=== PATIENT | female | born 1940 | race Caucasian/White ===

== ENCOUNTER 2016-12-29 18:36 | Inpatient (IN) | payer MEDICARE ==
--- NOTE | ~2016-12-29 | HP ---
Unit #: [id number] #: [id number] Patient: LORRIE ROWE [id number] [address] [place], [place] [address] [id number] MR#: [id number] NAME: LORRIE ROWE ROOM: Age: 76 Sex: F Admission Date: 12/29/2016 : 1940 Attending Physician: Malu Mao M.D. Referring Physician: Diego Toth D.O. Primary Care Physician: Diego Toth D.O. HISTORY AND PHYSICAL CHIEF COMPLAINT Intractable back pain after a fall with a T7 compression fracture. HISTORY OF PRESENT ILLNESS This pleasant 76-year-old female with AODM, hypertension, chronic pain, history of arrhythmia, is admitted for intractable back pain. The patient uses a walker, fell with the walker last evening. Family was able to get the patient up off the floor after about half an hour. She has been experiencing severe mid back pain since last evening. She now is unable to sit up or stand secondary to severe back pain. She presented to this emergency department earlier today where after multiple x-rays were performed, it was determined that she has an acute versus subacute T7 compression fracture with 30% loss of height. Currently, on examination, she is unable to even sit up secondary to pain. She is most tender over the mid thoracic spine. PAST MEDICAL HISTORY 1. AODM. 2. Hypertension. 3. 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 4. History of elevated LFTs. 5. Chronic back pain status post multiple back surgeries and kyphoplasty on chronic opiates. 6. Hyperlipidemia. 7. History of acute kidney injury in the past. 8. Admission August 2015 for torsades related to electrolyte abnormalities, RUSS ejection fraction 55%, moderate TR, [id number]-jmfemdyf MR. Negative Lexiscan Cardiolite. Patient also developed junctional rhythm at that time and paroxysmal atrial fibrillation and needed a temporary pacemaker. 9. Cholecystectomy. 10. Multiple back surgeries. 11. Bilateral total knee replacements. 12. Bilateral rotator cuff repair. ALLERGIES 1. Phenergan. 2. Dilaudid. 3. Nonsteroidal anti-inflammatory drugs. 4. Penicillin. 5. Felodipine. 6. Rocephin. Unit #: [id number] #: [id number] Patient: LORRIE ROWE HOME MEDICATIONS From the best I can determine include: 1. Celexa 10 mg daily. 2. Metformin 500 mg b.i.d. 3. Januvia 50 mg daily. 4. Norvasc 10 mg daily. 5. Lipitor 10 mg h.s. 6. Oxycodone 15 mg q.6 h. as needed. SOCIAL HISTORY The patient lives with her who just had shoulder surgery. She is a lifelong nonsmoker and does not drink alcohol. FAMILY HISTORY Negative for CAD. REVIEW OF SYSTEMS Notable for fall, ITP, hypertension, diabetes, hyperlipidemia, arrhythmia, above-mentioned surgeries. All other systems were reviewed and are negative except for severe pain. PHYSICAL EXAMINATION VITAL SIGNS: Temperature 98.7, pulse 75, respirations 14, blood pressure 144/75, O2 saturation 100% on room air. GENERAL: Pleasant, 76-year-old female currently in no acute distress unless she is moved. HEENT: Eyes PERRLA. Extraocular muscles are intact status post bilateral cataract extraction. Pharynx is benign. NECK: Supple without adenopathy or thyromegaly. CHEST: Clear. HEART: Normal S1, S2 with a soft systolic murmur best heard at the left lower sternal border. ABDOMEN: Bowel sounds are present. No hepatosplenomegaly, tenderness or masses. EXTREMITIES: With mild pedal edema. Pedal pulses are present but diminished. NEUROLOGIC: Awake and alert. Cranial nerves are intact. Equal strength throughout but is extremely weak on exam. Resists sitting up secondary to severe mid thoracic back pain. With percussion of her spine, she is most tender over the mid thoracic spine. Straight leg raising is negative. This causes pain in her lower back. DIAGNOSTIC STUDIES LABORATORY: None are yet drawn. IMAGING: Chest x-ray no acute disease. CT scan of the L-spine limited due to hardware. Postop changes. L1-L2 indeterminate fracture. Kyphoplasty is noted along with postop changes related to previous back surgeries. Head CT shows general atrophy and no acute disease. CT scan of the thoracic spine, T7 fracture acute versus subacute with 30% loss of height. Plain x-rays of the C-spine show multilevel DJD. Unit #: [id number] #: [id number] Patient: LORRIE ROWE ASSESSMENT 1. Fall with intractable mid thoracic back pain. 30% T7 compression fracture is noted. Patient is status post extensive back surgery and kyphoplasty. She now is immobilized secondary to severe pain. 2. Chronic pain on chronic opiates. 3. Adult-onset diabetes mellitus. 4. Remote history of ITP. 5. Essential hypertension. 6. Hyperlipidemia. 7. History of torsades, paroxysmal atrial fibrillation and junctional rhythm in 2014, in large part related to electrolyte abnormalities. 8. Previous history of acute kidney injury. PLAN 1. Pain control. 2. DVT prophylaxis. 3. Obtain baseline labs, EKG and urinalysis. 4. Social work and physical therapy to [facility]. 5. If not improving, consider spine surgery consult to determine whether a kyphoplasty would be of benefit, etc. Dictated by Melanie Viveros M.D. VÍCTOR/ivelisse TD: 12/29/2016 22:43 JOB #: [id number] HISTORY AND PHYSICAL Page 1 of 1 X Melanie Viveros MD X HISTORY AND PHYSICAL
--- NOTE | ~2016-12-29 | CT122 ---
[facility] A Service of [facility] & [facility] RADIOLOGY TEXT RESULTS PATIENT: LORRIE ROWE LOCATION: [facility] 236-01 : 41 UNIT #: [id number] AGE: [address]: Malcolm Del Angel MD SEX: F ORDER DR: [id number] [facility] [address] [place], [place] [address] [id number] I MR#: [id number] Acc #: [id number] NAME: LORRIE ROWE. : 1940 SEX: F STUDY DATE/TIME: 12/29/2016 15:44 UNIT: CEDOF ROOM: 43[address] STUDY DESCRIPTION: CT Thoracic Spine Wo Cont Attending Physician: Melanie Viveros M.D. Referring Physician: Diego Toth D.O. Ordering Physician: Malu Mao M.D. Primary Care Physician: Diego Toth D.O. MEDICAL IMAGING REPORT This report is preliminary unless electronic signature is present EXAM Thoracic spine series, 12/29/2016 HISTORY Fall yesterday. Unsure of loss of consciousness. Upper and lower back and hit back of head. Pain back of head. FINDINGS CT thoracic spine performed. Bone soft tissue windows reviewed. No prior dedicated no prior dedicated CT of the thoracic spine. Comparison to thoracic spine plain radiographs of 05/29/[address] of the chest 10/08/2015. Visualized thyroid unremarkable. No mediastinal or hilar adenopathy suggested. Heart oxujms-ys-rutiz limits of normal in size. No pleural effusions. Linear scarring or atelectasis in the periphery of the lungs. Some linear patchy densities in the lower lung zones probably represent combination of chronic change and atelectasis. Atherosclerotic arterial calcifications. Visualized portions of the liver unremarkable. Status post cholecystectomy. Visualized spleen, pancreas, adrenal glands, upper renal poles unremarkable. Large hiatal hernia. More pronounced than on prior chest CT. Remainder of visualized esophagus, stomach, small bowel and colon unremarkable. Diminished bony mineralization. Alignment in the frontal projection shows indication of mild dextroscoliosis of the upper lumbar spine. In the lateral projection there is some straightening of the mid to inferior thoracic lordosis. Similar to prior examination. Prior T12 and L1 vertebral plasty. Acute appearing mild central compression deformity T7 vertebral body. Loss of height centrally approximately 31%. This is new compared to the prior plain radiograph of 05/29/[address] examination 10/08/2015. Given the patient's history, it is likely related to the recent fall. The compression deformity involves the superior endplate. There are some faintly evident fracture planes in the cortex of the superior endplate. The no significant retropulsion of posterior STS. [facility] A Service of [facility] RADIOLOGY TEXT RESULTS PATIENT: LORRIE ROWE LOCATION: [facility] 236-01 : 41 UNIT #: [id number] AGE: [address]: Malcolm Del Angel MD SEX: F ORDER DR: nicolas. No displaced fragments. The other thoracic vertebral body heights appear within normal limits. Moderate generalized intervertebral disc space narrowing. Vacuum disc phenomena 11/26/1889 10, T10-T11, T11-T12, V12-L1. No significant paraspinal hematoma adjacent to T7. No other fractures are seen. Degenerative changes in the cervical spine. Posterior disc osteophyte complex C4-C5 narrowing of the anterior thecal space. Mild central spinal canal narrowing. Possible anterior cord contact. There is no indication of cord compression. Within the thoracic spine. There is a left paracentral osteophyte T7-T8 narrowing left paracentral thecal space. Small posterior osteophytes T11-T12 without spinal stenosis. The neural foramina appear patent without evidence of exiting nerve impingement. IMPRESSION 1. Please see the complete dictation above. There is an acute or early subacute T7 superior endplate compression deformity more pronounced centrally with approximately 31% loss of height centrally. New in comparison to plain radiographs from May 2016. No significantly displaced fracture fragments. No retropulsion of posterior cortex at T7. No spinal canal compromise. No paraspinal hematoma. There is no underlying bony destructive process seen. I favor that this is a compression fracture related to the patient's acute trauma in conjunction with underlying bony demineralization. No other acute fractures are seen. 2. Prior T12 and L1 vertebral plasty. 3. Multilevel degenerative changes in the visualized spine. See blzgc-tr-tbpzs description in body of report above. 4. Large hiatal hernia. More pronounced than on prior CT chest 10/08/2015. Remainder of visualized alimentary canal unremarkable. 5. Atherosclerotic arterial calcifications. No aneurysm. 6. Prior cholecystectomy. This may be a incidental findings in body of report above. Dictated by... Robert York M.D. THIS IS AN ELECTRONICALLY VERIFIED REPORT Robert York M.D. at 12/31/2016 8:06 PM ALYSHA/yesenia TD: 12/30/2016 01:59 JOB #: [id number] MEDICAL IMAGING REPORT Page 1 of 1 COPY
--- NOTE | ~2016-12-29 | OR ---
Unit #: [id number] #: [id number] Patient: LORRIE ROWE [id number] [address] [place], [place] [address] [id number] I MR#: [id number] NAME: LORRIE ROWE ROOM: 241 Date of Procedure: 01/02/2017 Admission Date: 12/29/2016 Surgeon: Robert Suárez M.D. : 1940 Attending Physician: Malcolm Del Angel M.D. Referring Physician: Diego Toth D.O. Primary Care Physician: Diego Toth D.O. OPERATIVE REPORT PREOPERATIVE DIAGNOSES 1. Osteoporosis. 2. T7 osteoporotic compression fracture. POSTOPERATIVE DIAGNOSES 1. Osteoporosis. 2. T7 osteoporotic compression fracture. PROCEDURE PERFORMED T7 kyphoplasty and biopsy ([id number]). ANESTHESIOLOGIST Dr. Angulo. ANESTHESIA General endotracheal. ESTIMATED BLOOD LOSS Minimal. SPECIMENS T7 to pathology. COMPLICATIONS None. INDICATIONS The patient is a 76-year-old female who suffered a fall several weeks ago, suffered an acute fracture of T7. The patient has undergone kyphoplasty in the past at T12 and L1. She was made aware of the risks and the difficulty of predicting a specific outcome. DESCRIPTION OF PROCEDURE The patient was taken to surgery. After successful anesthesia, she was placed prone on well-padded Ruddy table on 2 bolsters. The back was prepped and draped in usual sterile fashion. The T7 pedicles were well localized under biplanar fluoroscopy. Two stab incisions were made at T7 where upon the working cannulas were advanced within the vertebral body of T7. Biopsy specimen was obtained from each side and sent them to pathology labeled T7. Next, a 10 mm Express balloons were placed. These were inflated and had good position within the vertebral body. These were deflated and removed and the methacrylate was slowly injected under live Unit #: [id number] #: [id number] Patient: LORRIE ROWE lateral fluoroscopic imaging. It was allowed to cure and harden and had good position within the vertebral body of T7. The working cannulas were removed. The skin was closed with Dermabond. Two final images demonstrating the final position of the methacrylate within the vertebral body of T7 were saved for permanent copy. The skin was closed with Dermabond. Telfa and Tegaderm comprised the final dressing. The patient tolerated the procedure well, was turned supine, extubated, and taken stable to recovery. All sponge, needle, and instrument counts were correct x3. Dictated by... Khadra Barclay/atul TD: 01/03/2017 17:06 JOB #: [id number] OPERATIVE REPORT Page 1 of 1 X Robert Suárez MD X PROCEDURE OPERATIVE NOTE
--- NOTE | ~2016-12-29 | DS ---
Unit #: [id number] #: [id number] Patient: LORRIE ROWE [id number] [address] [place], [place] [address] [id number] I MR#: [id number] NAME: LORRIE ROWE ROOM: 241 Age: 76 Sex: F Admission Date: 12/29/2016 : 1940 Discharge Date: 01/03/2017 Attending Physician: Malcolm Del Angel M.D. Referring Physician: Diego Toth D.O. Primary Care Physician: Diego Toth D.O. DISCHARGE SUMMARY REASON FOR ADMISSION Acute onset of back pain; T7 compression fracture. HISTORY OF PRESENT ILLNESS/HOSPITAL COURSE The patient is a very pleasant 76-year-old female with history of diabetes type 2, hypertension and chronic pain syndrome who was admitted secondary to intractable back pain. She was determined to have a T7 compression fracture with 30% loss of height. Consultation was placed to Dr. Suárez of spine service. The patient underwent kyphoplasty procedure yesterday on 01/02/2017. Postoperatively she, otherwise, did well. PT and OT services have evaluated the patient secondary to falls, as well as intractable pain. She is deemed necessary and appropriate for transfer to a rehab facility. Through her hospital course laboratory studies were assessed. Blood sugar was noted to be elevated. She will be initiated on Lantus 10 units subcu q.a.m. As well, she will be maintained on NovoLog low-dose sliding scale with insulin and Accu-Cheks q.a.c./q.h.s. Please note the patient did have a urine culture secondary to abnormal UA on day of admission, which did not yield any acute bacterial growth. Also of note, CT of the thoracic spine was performed, which did reveal aforementioned T7 compression fracture. Laboratory studies at time of discharge include a CBC showing hemoglobin of 9.7, creatinine level of 1.5, likely representing the patient's baseline. FINAL DISCHARGE DIAGNOSES 1. Thoracic 7 compression fracture. 2. Acute onset of intractable back pain. 3. Diabetes type 2. 4. Chronic kidney disease, baseline creatinine likely close to 1.5. 5. Idiopathic thrombocytopenic purpura. 6. Prior history of transaminitis. Workup negative apparently in the past. 7. History of chronic back pain with numerous back surgeries. 8. Hyperlipidemia. 9. Bilateral total knee replacements in the past. DISCHARGE MEDICATIONS 1. Celexa 10 mg p.o. daily. Unit #: [id number] #: [id number] Patient: LORRIE ROWE 2. Januvia 50 mg p.o. daily. 3. Norvasc 10 mg p.o. daily. 4. Lipitor 10 mg p.o. q.h.s. 5. NovoLog low-dose sliding scale with insulin and Accu-Cheks q.a.c./q.h.s. 6. Oxycodone/OxyIR 15 mg p.o. q.6 p.r.n. 7. Lantus 10 units subcu q.a.m. DISCHARGE CONDITION Stable. DISCHARGE DISPOSITION To rehab for ongoing care. Dictated by... Khadra Cabello/judith TD: 01/03/2017 15:50 JOB #: [id number] DISCHARGE SUMMARY Page 1 of 1 X Malcolm Del Angel MD X DISCHARGE SUMMARY
--- NOTE | ~2016-12-29 | CT98 ---
[facility] A Service of [facility] & [facility] RADIOLOGY TEXT RESULTS PATIENT: LORRIE ROWE LOCATION: [facility] 236-01 : 41 UNIT #: [id number] AGE: [address]: Malcolm Del Angel MD SEX: F ORDER DR: [id number] [facility] [address] [place], [place] [address] [id number] I MR#: [id number] Acc #: [id number] NAME: LORRIE ROWE. : 1940 SEX: F STUDY DATE/TIME: 12/29/2016 17:10 UNIT: CEDOF ROOM: [id number] STUDY DESCRIPTION: CT Lumbar Spine Wo Cont Attending Physician: Melanie Viveros M.D. Referring Physician: Diego Toth D.O. Ordering Physician: Malu Mao M.D. Primary Care Physician: Diego Toth D.O. MEDICAL IMAGING REPORT This report is preliminary unless electronic signature is present EXAM CT lumbar spine HISTORY Fell yesterday, unsure loss of consciousness. Has upper and lower back pain. Hit back of head. Pain at the back of the head. Multiple previous surgeries, spinal fusion, kyphoplasties. No cancer history indicated. TECHNIQUE This CT exam was performed with one or more of the following radiation dose reduction techniques: automatic exposure control, adjustment of mA and/or kV according to patient size, and iterative reconstruction. COMMENT CT of the lumbar spine attempted in the axial plane followed by sagittal and coronal reconstructed images. There is comparison study from 12/24/2012. This examination is severely technically limited due to a combination of problems including a large amount of metal present but also apparently suboptimal scan or penetration. The images are noisy in general and considerably noisier than they were in 2013 even though the metal was present at that time also. The study is essentially nondiagnostic with respect to possible fracture or the status of bony fusion and it should be repeated on a different CT system with better penetration and better metal reduction technique. Since this patient is in the emergency room, limited interpretation as follows provided. The patient has posterior fusion hardware from apparently L2-S1 and there have been kyphoplasties at L1 and T12 and in the S1 region. The S1 kyphoplasty cement is old but the kyphoplasty cement at T12 and L1 is new from 2013. There is anterior wedge deformity with broad Schmorl's node STS. [facility] A Service of [facility] RADIOLOGY TEXT RESULTS PATIENT: LORRIE ROWE LOCATION: A 236-01 : 41 UNIT #: [id number] AGE: [address]: Malcolm Del Angel MD SEX: F ORDER DR: formation either side of the 1-2 intervertebral disc, essentially new from prior. Progression of vacuum disc formation at T11-12 and T12-L1 since prior. Deformity of L3 is poorly characterized, possibly chronic and there are intervertebral disc spacers at 2-3, 3-4, 4-5 levels. I believe there is chronic fusion across the 5-1 level. There is probably some chronic anterolisthesis of L3 on L4 and retrolisthesis of L2 on L3. There is lower lumbar levoconvex upper lumbar dextroconvex scoliosis. Partly appreciated is posterior bone graft material but again I cannot accurately assess for possible fusion. Right side L2 pedicle screw crosses medial aspect of the pedicle probably at the lateral aspect of the canal. The left side L3 pedicle screw crosses lateral to the lateral margin of the pedicle terminates at the lateral aspect of the vertebral body cortex. Left-sided S1 pedicle screw passes beyond the anterior cortex sacrum by about 5.0 mm. Minimal extension of the right-sided S1 screw beyond the anterior cortex. There is no gross bony canal stenosis. There is multilevel facet arthritis appreciated at levels where not obscured by the metal artifact. Arthritis noted in the sacroiliac joints. IMPRESSION 1. This study is so technically limited it is essentially nondiagnostic for evaluation for acute versus chronic fracture. I would recommend that it be repeated on a different CT scanner with better capability. The imaging acquired is very grainy and limited by the metal artifact. Acquisition on a newer scanner with better metal reduction technique is recommended. 2. There is evidence of fusion L2-S1. There is no gross bony canal stenosis. There has been interval kyphoplasties at T12 and L1 since a study from 2012. There is new deformity centered at either side of the 1-2 intervertebral disc with anterior wedging of L2 but this is age indeterminate. Please see the detailed discussion above and again if there is concern for acute fracture I would recommend that the study be performed again with dedicated metal reduction technique. STAT * RESULT Dictated by... Heidy Charles M.D. THIS IS AN ELECTRONICALLY VERIFIED REPORT Heidy Charles M.D. at 12/30/2016 10:07 AM Latesha TD: 12/29/2016 18:24 JOB #: [id number] MEDICAL IMAGING REPORT [facility]. [facility] A Service of [facility] & [facility] RADIOLOGY TEXT RESULTS PATIENT: LORRIE ROWE LOCATION: [place] [address] : 41 UNIT #: [id number] AGE: [address]: Malcolm Del Angel MD SEX: F ORDER DR: Page 1 of 1 COPY
--- NOTE | ~2016-12-29 | US77 ---
[facility] A Service of [facility] RADIOLOGY TEXT RESULTS PATIENT: LORRIE ROWE LOCATION: [facility] : 41 UNIT #: [id number] AGE: [address]: Malcolm Del Angel MD SEX: F ORDER DR: [id number] [facility] [address] [place], [place] [address] [id number] I MR#: [id number] Acc #: [id number] NAME: LORRIE ROWE. : 1940 SEX: F STUDY DATE/TIME: 12/31/2016 12:42 UNIT: [facility] ROOM: [facility] STUDY DESCRIPTION: US Kidney Bilateral Complete Attending Physician: Malcolm Del Angel M.D. Referring Physician: Diego Toth D.O. Ordering Physician: Physician Non-Staff Primary Care Physician: Deigo Toth D.O. MEDICAL IMAGING REPORT This report is preliminary unless electronic signature is present EXAM Renal ultrasound INDICATION Acute kidney injury. BUN 27, creatinine 1.6, GFR 31.2. PROCEDURE Sanford-scale and Doppler imaging of the kidneys and bladder. COMPARISON 10/26/2016 FINDINGS Right kidney measures 8.9 cm. Cortical thickness 8.0 mm. The left kidney is significantly obscured by bowel gas artifact. No obvious hydronephrosis. Unremarkable bladder. IMPRESSION 1. Left kidney obscured and not well seen. 2. No obvious hydronephrosis. 3. Mild cortical thinning of the right kidney may represent changes of chronic renal disease. Dictated by... Bhavik Landeros M.D. THIS IS AN ELECTRONICALLY VERIFIED REPORT Bhavik Landeros M.D. at 12/31/2016 5:05 PM SHANNON/vidya TD: 12/31/2016 14:18 JOB #: [id number] [facility] A Service [facility] RADIOLOGY TEXT RESULTS PATIENT: LORRIE ROWE LOCATION: [facility] : 41 UNIT #: [id number] AGE: [address]: Malcolm Del Angel MD SEX: F ORDER DR: MEDICAL IMAGING REPORT Page 1 of 1 COPY
--- NOTE | ~2016-12-29 | CT71 ---
[facility] A Service of [facility] & [facility] RADIOLOGY TEXT RESULTS PATIENT: LORRIE ROWE LOCATION: [facility] 236-01 : 41 UNIT #: [id number] AGE: [address]: Malcolm Del Angel MD SEX: F ORDER DR: [id number] [facility] [address] [place], [place] [address] [id number] I MR#: [id number] Acc #: [id number] NAME: LORRIE ROWE : 1940 SEX: F STUDY DATE/TIME: 12/29/2016 16:59 UNIT: CEDOF ROOM: [id number] STUDY DESCRIPTION: CT Head Wo Contrast Attending Physician: Melanie Viveros M.D. Referring Physician: Diego Toth D.O. Ordering Physician: Malu Mao M.D. Primary Care Physician: Diego Toth D.O. MEDICAL IMAGING REPORT This report is preliminary unless electronic signature is present EXAM CT brain without contrast media HISTORY Fell yesterday. Back pain, hit back of head and pain in back of head. TECHNIQUE/COMPARISON Transaxial imaging of the brain was performed without contrast media and compared to the patient's previous scan of October 2016. This CT exam was performed with one or more of the following radiation dose reduction techniques: automatic exposure control, adjustment of mA and/or kV according to patient size, and iterative reconstruction. FINDINGS There is generalized prominence of the ventricles and CSF-containing spaces unchanged from the patient's last study. No intra or extraaxial mass lesions, fluid collections or mass effect are seen. No focal areas of low attenuation or evidence of acute intracranial hemorrhage. There is evidence of chronic sinus disease in the right maxillary sinus. No fractures are present. There is atherosclerotic calcification within the carotid siphons and vertebral arteries. CONCLUSION Generalized atrophy. No acute intracranial findings. Chronic right maxillary sinus disease. Dictated by... Robert Pierce M.D. THIS IS AN ELECTRONICALLY VERIFIED REPORT Robert Pierce M.D. at 12/30/2016 10:35 AM JFK/to STS. [facility] A Service of [facility] & [facility] RADIOLOGY TEXT RESULTS PATIENT: LORRIE ROWE LOCATION: [place] [address] : [birth year] UNIT #: [id number] AGE: [address]: Malcolm Del Angel MD SEX: F ORDER DR: TD: 12/29/2016 23:11 JOB #: [id number] MEDICAL IMAGING REPORT Page 1 of 1 COPY
--- NOTE | ~2016-12-29 | CR58 ---
[facility] A Service of [facility] & [facility] RADIOLOGY TEXT RESULTS PATIENT: LORRIE ROWE LOCATION: [facility] 236-01 : 41 UNIT #: [id number] AGE: [address]: Malcolm Del Angel MD SEX: F ORDER DR: [id number] [facility] [address] [place], [place] [address] [id number] I MR#: [id number] Acc #: [id number] NAME: LORRIE ROWE : 1940 SEX: F STUDY DATE/TIME: 12/29/2016 17:48 UNIT: CEDOF ROOM: [id number] STUDY DESCRIPTION: CR Cervical Spine 2 or 3 Views Attending Physician: Melanie Viveros M.D. Referring Physician: Diego Toth D.O. Ordering Physician: Malu Mao M.D. Primary Care Physician: Diego Toth D.O. MEDICAL IMAGING REPORT This report is preliminary unless electronic signature is present EXAM Cervical spine 7 views, 12/29/2016 HISTORY Back, neck and chest pain today after fall. FINDINGS AP, lateral, swimmers, angled odontoid and open-mouth views are submitted. There are seven cervical vertebral levels and normal alignment. There is disc space narrowing at C3-4, 4-5 and 5-6. There is facet disease at the same levels. The alignment appears normal with no fracture seen. No subluxation is identified. Imaging of C1 is somewhat limited on the AP view but appears normal. 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 No fractures or subluxation identified. Dictated by... Robert Pierce M.D. THIS IS AN ELECTRONICALLY VERIFIED REPORT Robert Pierce M.D. at 12/30/2016 10:35 AM VIANCA/yesenia TD: 12/30/2016 00:15 JOB #: [id number] MEDICAL IMAGING REPORT Page 1 of 1 COPY
--- NOTE | ~2016-12-29 | CO ---
Unit #: [id number] #: [id number] Patient: LORRIE ROWE [id number] [address] [place], [place] [address] [id number] I MR#: [id number] NAME: LORRIE ROWE ROOM: 241 Age: 76 Sex: F Admission Date: 12/29/2016 : 1940 Attending Physician: Malcolm Del Angel M.D. Primary Care Physician: Diego Toth D.O. Consultation Date: 01/01/2017 CONSULTATION REPORT REASON FOR CONSULT Back pain. HISTORY OF PRESENT ILLNESS The patient is a 76-year-old female who has suffered multiple falls in the past. Most of the history was gained from her granddaughter. She has had admission by [facility]. Medications include atorvastatin, Norvasc, citalopram and more recently Januvia and Lovenox. She suffers with high blood pressure. ALLERGIES Antiinflammatory medication, penicillin, piroxicam, promethazine, ceftriaxone. REVIEW OF SYSTEMS A 14-point review of systems is positive for back pain, otherwise, negative. PHYSICAL EXAMINATION She has a well-healed surgical incision over the lumbar spine. She has tenderness to percussion in the mid thoracic spine. CLINICAL IMPRESSION 1. Osteoporosis. 2. Acute fracture T7. RECOMMENDATIONS Kyphoplasty. The patient has had kyphoplasty of T12 and L1 in the past. She understands the procedure quite well. We will proceed tomorrow a.m. Dictated by... Robert Suárez M.D. WILSON/lenin TD: 01/01/2017 12:00 JOB #: [id number] Unit #: [id number] #: [id number] Patient: LORRIE ROWE CONSULTATION REPORT Page 1 of 1 X Robert Suárez MD X CONSULTATION REPORT
--- NOTE | ~2016-12-29 | CR72 ---
[facility]. [facility] A Service of [facility] & [facility] RADIOLOGY TEXT RESULTS PATIENT: LORRIE ROWE LOCATION: [place] [address] : 41 UNIT #: [id number] AGE: [address]: Malcolm Del Angel MD SEX: F ORDER DR: [id number] [facility] [address] [place], [place] [address] [id number] I MR#: [id number] Acc #: [id number] NAME: LORRIE ROWE. : 1940 SEX: F STUDY DATE/TIME: 12/29/2016 17:48 UNIT: CEDOF ROOM: [id number] STUDY DESCRIPTION: CR Chest Single View Portable Attending Physician: Melanie Viveros M.D. Referring Physician: Diego Toth D.O. Ordering Physician: Malu Mao M.D. Primary Care Physician: Diego Toth D.O. MEDICAL IMAGING REPORT This report is preliminary unless electronic signature is present EXAM Portable chest 12/29 COMPARISON 10/08/2015 HISTORY Back, neck and chest pain after fall today. FINDINGS An AP view is obtained. The cardiac size in the patient is normal. The pulmonary vascular markings are normal. The previous study showed marked elevation of the right hemidiaphragm. This is no longer identified. Lungs show some mild fibrosis at the bases, but are otherwise clear. No acute fractures are seen. The patient has apparently had prior lower thoracic and lumbar vertebral plasty. CONCLUSION Mild basilar scarring. No acute findings. Dictated by... Robert Pierce M.D. THIS IS AN ELECTRONICALLY VERIFIED REPORT Robert Pierce M.D. at 12/30/2016 10:35 AM VIANCA/irwin TD: 12/29/2016 23:20 JOB #: [id number] MEDICAL IMAGING REPORT Page 1 of 1 COPY
--- NOTE | ~2016-12-29 | EKG ---
PATIENT: LORRIE ROWE UNIT #: [id number] Ventricular Rate: 71 BPM Atrial Rate: 71 BPM P-R Interval: 174 ms QRS Duration: 76 ms Q-T Interval: 418 ms QTC Calculation(Bezet): 454 ms P Sweet: 57 degrees Calculated R Sweet: 100 degrees Calculated T Sweet: 64 degrees Diagnosis Line: Normal sinus rhythm Diagnosis Line: Lateral infarct , age undetermined Diagnosis Line: Abnormal ECG Diagnosis Line: When compared with ECG of 25-OCT-2016 16:38, Diagnosis Line: Lateral infarct is now Present Diagnosis Line: Confirmed by MAX CARTER MD ([id number]) on 01/03/2017 Diagnosis Line: 10:53:16 PM INTERPRETING MD: RAUL MORENO
--- NOTE | ~2016-12-29 | CR242 ---
[facility] A Service of [facility] & [facility] RADIOLOGY TEXT RESULTS PATIENT: LORRIE ROWE LOCATION: [facility] : 41 UNIT #: [id number] AGE: [address]: Malcolm Del Angel MD SEX: F ORDER DR: [id number] [facility] [address] [place], [place] [address] [id number] I MR#: [id number] Acc #: [id number] NAME: LORRIE ROWE : 1940 SEX: F STUDY DATE/TIME: 01/02/2017 7:31 UNIT: [facility] ROOM: [facility] STUDY DESCRIPTION: CR Thoracic Spine 2 Views Attending Physician: Malcolm Del Angel M.D. Referring Physician: Diego Toth D.O. Ordering Physician: Robert Suárez M.D. Primary Care Physician: Diego Toth D.O. MEDICAL IMAGING REPORT This report is preliminary unless electronic signature is present EXAM Thoracic spine series HISTORY Post kyphoplasty TECHNIQUE 2 spot films were obtained from the operating room documenting kyphoplasty performed at the mid thoracic level. Cement deposition appears satisfactory. Fluoroscopy time documented at 1 minute, 45 seconds. Please see the operative report for full details of the procedure. Dictated by... Diego Mac M.D. THIS IS AN ELECTRONICALLY VERIFIED REPORT Diego Mac M.D. at 01/04/2017 9:45 AM Shannan TD: 01/02/2017 22:08 JOB #: [id number] MEDICAL IMAGING REPORT Page 1 of 1 COPY
[~2016-12-29 18:36] MED LIST: ACETAMINOPHEN PO; AMLODIPINE BESY10 MG PO; AMOXICILLIN875 MG PO; ASPIRIN PO; ASPIRIN81 M1 PO; ASPIRIN81 MG PO; ATORVASTATIN CA10 MG PO; B-COMPLEX1 TAB PO; CELEXA PO; CELEXA20 MG PO; CENTRUM SILVER PO; CINNAMON PO; CIPROFLOXACIN500 M1 PO; CITALOPRAM HBR40 MG PO; COLACE PO; CRESTOR PO; CYANOCOBALAM1000 MCG PO; D-20002000 UNIT PO; DIABETES MED; DOC-Q-LACE100 MG PO; DOCU SOFT100 M1 PO; DULCOLAX10 MG/SUPP RC; DULCOLAX5 MG PR; DULOXETINE HCL60 MG PO; DURAGESIC100 MCG EXT; DURAGESIC25 MCG EXT; ESTRACE42.5 GM VAG; ESTRACE42.5 GM VG; EXFORGE; EXFORGE 10-1601 TAB PO; EXFORGE 5-160 M1 TAB PO; FAMOTIDINE PO; FERROUS GLUCON324 MG PO; FLAGYL250 M1 PO; FLEXERIL PO; FLOMAX0.4 M1 PO; FLONASE 0.05% N16 G1; FUROSEMIDE40 MG PO; GABAPENTIN400 MG PO; GERITOL COMPLET1 TA1 PO; GLUCOPHAGE500 M1 PO; GLUCOPHAGE500 MG PO; GLYBURIDE MICRON3 MG PO; GLYBURIDE PO; GLYNASE PO; GLYNASE3 MG PO; HCTZ; HYDROCHLOROTH12.5 M1 PO; HYDROCHLOROTH12.5 MG PO; HYDROCODON-ACE1 EAC7 PO; IRON1 TAB PO; JANUVIA PO; JANUVIA50 MG PO; K-DUR20 ME2 PO; KCL PO; LASIX PO; LEVAQUIN PO; LISINOPRIL PO; LORCET 10/650 T1 TAB PO; LORTAB 5/500 TA1 TA1 PO; METFORMIN HCL500 M1 PO; METFORMIN PO; MILK OF MAGNESIA PO; MIRALAX17 GM PO; MORPHINE SULFAT15 M3 PO; MORPHINE SULFAT30 M3 PO; MORPHINE SULFAT30 M4 PO; MULTI VITAMIN1 EACH PO; NAPROXEN PO; NORVASC PO; NORVASC10 MG PO; NOVOLOG100 U/M1; NOVOLOG100 U/M1 SQ; NYSTATIN15 GM OINT EXT; OXYCODON HCL-AP1 TA2 PO; OXYCODON-ACETA1 EAC1 PO; OXYCODONE HCL5 MG PO; OXYCODONE15 M1 PO; PEPCID PO; PERCOCET 10/31 UDTA1 PO; PERCOCET 5-3251 TAB PO; PERCOCET PO; PERCOCET10 PO; PHENERGAN25 MG PO; PROTONIX PO; QUESTRAN POWDER4 GM PO; REQUIP1 MG PO; RESTORIL15 MG PO; SIMVASTATIN40 MG PO; SIMVASTATIN80 MG PO; SUPPLEMENT; TYLOX 5/500 CAP1 CAP PO; VIT E PO; VITAMIN B-121000 MC1 PO; WALGREENS; ZITHROMAX PO; ZOCOR PO; ZOFRAN PO
[2016-12-29 23:51] LABS: BASOPHIL# 0.1 X10e3 (0-0.3); BASOPHIL% 0.8 % (0-2.5); EOSINOPHIL# 0.3 X10e3 (0-0.7); EOSINOPHIL% 5.1 % (0.0-7.0); HEMATOCRIT 27.2 % (35.0-45.0); HEMOGLOBIN 9.1 gm/dL (12.0-16.0); LYMPHOCYTE# 1.6 X10e3 (1.0-3.5); LYMPHOCYTE% 24.2 % (17.0-45.0); MEAN CELL VOLUME 93.1 FL (83-96); MEAN CORPUSCULAR HEMOGLOBIN 31.1 PG (28-34); MEAN CORPUSCULAR HGB CONC 33.4 g/dL (30-36); MEAN PLATELET VOLUME 7.1 FL (6.5-11.5); MONOCYTE# 0.6 X10e3 (0-1.0); MONOCYTE% 8.6 % (3.0-12.0); NEUTROPHIL% 61.3 % (40-75); PLATELET COUNT 198 X10e3 (140-420); RED BLOOD COUNT 2.93 X10e (3.90-5.30); RED CELL DISTRIBUTION WIDTH 14.5 % (11.0-15.5); WHITE BLOOD COUNT 6.5 X10e3 (4.0-10.5)
[2016-12-29 23:57] LABS: DIFF IND NO
[2016-12-30 00:19] LABS: ALBUMIN SERUM 3.6 g/dL (3.5-5.0); BILIRUBIN,TOTAL 0.5 mg/dL (0.2-2.0); BUN/CREATININE RATIO 17.22; CALCIUM SERUM 9.1 mg/dL (8.4-10.2); CREATININE SERUM 1.8 mg/dL (0.6-1.4); GLOM FILT RATE Estimated 29.2 mL/min (>60); POTASSIUM 4.3 mmol/L (3.5-5.1); PROTEIN TOTAL SERUM 6.4 g/dL (6.0-8.3)
[2016-12-30 01:45] LABS: URINE SOURCE CATH
[2016-12-30 01:48] LABS: URINE APPEARANCE CLEAR; URINE BILIRUBIN NEG (NEG); URINE BLOOD NEG (NEG); URINE COLOR YELLOW; URINE GLUCOSE 100 MG/DL (NEG); URINE KETONE NEG (NEG); URINE LEUKOCYTE ESTERASE NEG (NEG); URINE NITRATE NEG (NEG); URINE PROTEIN TRACE (NEG); URINE SPECIFIC GRAVITY 1.013 (1.003-1.035); URINE UROBILINOGEN 0.2 MG/DL (NEG)
[2016-12-31 07:09] LABS: HEMATOCRIT 29.1 % (35.0-45.0); HEMOGLOBIN 9.5 gm/dL (12.0-16.0); MEAN CELL VOLUME 94.8 FL (83-96); MEAN CORPUSCULAR HEMOGLOBIN 30.9 PG (28-34); MEAN CORPUSCULAR HGB CONC 32.5 g/dL (30-36); MEAN PLATELET VOLUME 7.3 FL (6.5-11.5); RED BLOOD COUNT 3.07 X10e (3.90-5.30); RED CELL DISTRIBUTION WIDTH 14.5 % (11.0-15.5); WHITE BLOOD COUNT 6.3 X10e3 (4.0-10.5)
[2016-12-31 07:38] LABS: BUN/CREATININE RATIO 16.87; CALCIUM SERUM 9.1 mg/dL (8.4-10.2); CREATININE SERUM 1.6 mg/dL (0.6-1.4); GLOM FILT RATE Estimated 31.2 mL/min (>60); MAGNESIUM 1.7 mg/dL (1.6-3.0); POTASSIUM 3.9 mmol/L (3.5-5.1)
[2017-01-01 06:42] LABS: HEMATOCRIT 29.9 % (35.0-45.0); HEMOGLOBIN 9.7 gm/dL (12.0-16.0); MEAN CELL VOLUME 93.9 FL (83-96); MEAN CORPUSCULAR HEMOGLOBIN 30.7 PG (28-34); MEAN CORPUSCULAR HGB CONC 32.6 g/dL (30-36); MEAN PLATELET VOLUME 7.1 FL (6.5-11.5); RED BLOOD COUNT 3.18 X10e (3.90-5.30); WHITE BLOOD COUNT 6.4 X10e3 (4.0-10.5)
[2017-01-01 07:12] LABS: CREATININE SERUM 1.5 mg/dL (0.6-1.4); GLOM FILT RATE Estimated 33.7 mL/min (>60); MAGNESIUM 1.7 mg/dL (1.6-3.0); POTASSIUM 3.9 mmol/L (3.5-5.1)
== END 2017-01-03 17:18 | DRG 478 ==
LOC: CED 18:36 → CEDOF 22:00 → C2A 12-30 08:51
PROVIDERS: Internal Medicine; Orthopaedic Surgery Orthopaedic Surgery of the Spine; Physician Assistant Medical
PROC: 0PB40ZX Excision of Thoracic Vertebra, Open Approach, Diagnostic (ICD-10-PCS; 2017-01-02)
PROC: 0PU43JZ Supplement Thoracic Vertebra with Synthetic Substitute, Percutaneous Approach (ICD-10-PCS; 2017-01-02)
PROC: 0PS43ZZ Reposition Thoracic Vertebra, Percutaneous Approach (ICD-10-PCS; principal; 2017-01-02 07:30)
DX: M80.88XA Other osteoporosis with current pathological fracture, vertebra(e), initial encounter for fracture (principal); D69.3 Immune thrombocytopenic purpura; E11.22 Type 2 diabetes mellitus with diabetic chronic kidney disease; W18.30XA Fall on same level, unspecified, initial encounter; Y92.009 Unspecified place in unspecified non-institutional (private) residence as the place of occurrence of the external cause; E78.5 Hyperlipidemia, unspecified; Z90.49 Acquired absence of other specified parts of digestive tract; Z96.653 Presence of artificial knee joint, bilateral; I49.9 Cardiac arrhythmia, unspecified; Z88.0 Allergy status to penicillin; Z79.891 Long term (current) use of opiate analgesic; Z79.84 Long term (current) use of oral hypoglycemic drugs; G89.29 Other chronic pain; M62.3 Immobility syndrome (paraplegic); N18.9 Chronic kidney disease, unspecified
CPT/HCPCS: 36415; 70450; 71010; 72040; 72070; 72128; 72131; 76000; 76770; 80048; 80053; 81003; 82947; 83735; 85025; 85027; 87086; 88305; 93005; 96374; 96375; 97116; 97162; 97167; 97535; 99285; C1713; G8978-GP; G8979-GP; G8987-GO; G8988-GO; J0330; J1650; J1815; J2270; J2310; J2405; J3010; J3370

== ENCOUNTER → 2017-03-25 | Outpatient (CLI) | payer MEDICARE ==
[2017-03-25 12:58] LABS: BUN/CREATININE RATIO 18.33; CALCIUM SERUM 9.2 mg/dL (8.4-10.2); CREATININE SERUM 1.8 mg/dL (0.6-1.4); GLOM FILT RATE Estimated 26.9 mL/min (>60); POTASSIUM 4.8 mmol/L (3.5-5.1)
== END | disposition home or self-care (01) ==
LOC: CLAB 11:44
PROVIDERS: Internal Medicine Nephrology
DX: N18.4 Chronic kidney disease, stage 4 (severe) (principal)
CPT/HCPCS: 36415; 80048